=== PATIENT | female | born 1990 | race Caucasian/White ===

== ENCOUNTER → 2017-07-04 | Outpatient (CLI) | payer OTHER ==
[2017-07-04 17:12] LABS: LACTIC DEHYDROGENASE (LDH) 234 U/L (100-190)
== END | disposition home or self-care (01) ==
LOC: LB 15:57
PROVIDERS: Family Medicine
DX: M54.42 Lumbago with sciatica, left side (principal); D36.9 Benign neoplasm, unspecified site